=== PATIENT | male | born 1985 | race African-American/Black ===

== ENCOUNTER 2020-09-25 13:11 | Emergency (ER) | payer OTHER ==
[~2020-09-25] VITALS: Ht 182.9 cm; Wt 119.3 kg
[~2020-09-25 13:11] MED LIST: ABX; OXYC1TAB14 PO
--- NOTE | 2020-09-25 13:20 | NUR ---
UA CUP GIVEN
[2020-09-25] MEDS ORDERED: SODIUM CHLORIDE FLUSH 10ML SYR IVF ONE (14:00)
[2020-09-25] MEDS ORDERED: SODIUM CHLORIDE 0.9% 1,000ML IVBOLUS ONE (14:00)
[2020-09-25] MEDS ORDERED: MORPHINE SULFATE 4 MG/ML, 1ML ONE ×2 (14:11→15:00)
[2020-09-25 14:12] LABS: BASOPHILS % (AUTO) 1 % (0-1); EOSINOPHILS % (AUTO) 3 % (1-7); LYMPHOCYTES % (AUTO) 40 % (22-44); MEAN CORPUSCULAR HEMOGLOBIN 28.5 pg (27.5-34.5); MEAN CORPUSCULAR HGB CONC 33.4 g/dL (33.2-36.2); MONOCYTES % (AUTO) 4 % (2-9); NEUTROPHILS % (AUTO) 52 % (42-75); PLATELET COUNT 272 x10^3/uL (130-400); RED CELL DISTRIBUTION WIDTH 13.5 % (9.4-14.8)
[2020-09-25] MEDS: MORPHINE SULFATE 4 MG/ML, 1ML IVPush PRN ×2 (14:14→15:01)
[2020-09-25 14:16] LABS: MD NO
[2020-09-25 14:32] LABS: ALANINE AMINOTRANSFERASE 25 U/L (12-78); ALBUMIN 3.9 g/dL (3.4-5.0); ANION GAP 6 mmol/L (5-15); CHLORIDE 107 mmol/L (98-107); CREATININE 1.12 mg/dL (0.7-1.3)
[2020-09-25 14:34] LABS: ALKALINE PHOSPHATASE 83 U/L (45-117); BILIRUBIN,TOTAL 0.3 mg/dL (0.2-1.0); TOTAL PROTEIN 6.6 g/dL (6.4-8.2)
--- NOTE | 2020-09-25 14:44 | NUR ---
Pt to imaging.
[2020-09-25] MEDS ORDERED: OMNIPAQUE 350 MG/ML, 150 ML BOTTLE ONE (14:53)
--- NOTE | 2020-09-25 14:55 | NUR ---
back from ct pelvic pain returned at 12/18 Up to restroom to void
--- NOTE | 2020-09-25 15:08 | NUR ---
TASK RN: MEDICATED PER EMAR FOR PELVIC PAIN AT 11/17, UA COLLECTED PATIENT UPDATED ON ESTIMATED POC
[2020-09-25 15:25] LABS: MICROSCOPIC NOT IND
[2020-09-25 17:39] VITALS: BP 116/46
== END 2020-09-25 17:44 | disposition home or self-care (01) ==
LOC: ED 13:37
DX: R10.9 Unspecified abdominal pain (principal); G89.29 Other chronic pain; R30.0 Dysuria; M54.2 Cervicalgia; R11.0 Nausea; J45.909 Unspecified asthma, uncomplicated; Z90.89 Acquired absence of other organs; F17.200 Nicotine dependence, unspecified, uncomplicated
CPT/HCPCS: 36415; 74177; 80053; 81003; 83690; 85025; 87086; 96361; 96374; 96376; 99285; J2270; J7030; Q9967